=== PATIENT | female | born 1950 | race Two or more races ===

== ENCOUNTER 2024-06-19 06:04 | Day surgery (SDC) | payer OTHER ==
[~2024-06-19] VITALS: Ht 149.9 cm; Wt 65.8 kg
[~2024-06-19 06:04] MED LIST: ASCO500T11 PO; B-COCAP34 OR; CHOL200021 PO; LEVO-848 PO; LISI-707 PO; SPECCAP4 OR
[2024-06-19] MEDS ORDERED: DexAMETHasone SOD PHOS 4 MG/1ML SDV INJ ONE (06:48)
[2024-06-19] MEDS ORDERED: EPINEPHrine HCL 1 MG/1 ML AMP ONE (06:48)
[2024-06-19] MEDS ORDERED: fentaNYL CITRATE 100 MCG/2 ML VL ONE ×2 (06:48→08:27)
[2024-06-19] MEDS ORDERED: LIDOCAINE 1% (LOCAL ANESTH.) PF 5ml SDV ONE (06:50)
[2024-06-19] MEDS ORDERED: VANCOMYCIN HCL 1000 MG VL ONE (06:54)
[2024-06-19] MEDS ORDERED: PROPOFOL 10 MG/ML 20 ML IV ONE (06:55)
[2024-06-19] MEDS ORDERED: BUPIVACAINE HCL 50 ML ONE (06:58)
[2024-06-19] MEDS ORDERED: LIDOCAINE 1% HCL (LOCAL ANESTH.) INJ 20ML MDV ONE (06:58)
[2024-06-19] MEDS ORDERED: ONDANSETRON HCL 4 MG/2 ML VIAL ONE (07:25)
[2024-06-19] MEDS ORDERED: DexAMETHasone SOD PHOS 10MG/1ML VIAL INJ ONE (07:25)
[2024-06-19] MEDS: LIDOCAINE 1%HCL (LOCAL ANESTH) 10 ML MDV IJ ONE (07:26)
[2024-06-19] MEDS ORDERED: ePHEDrine SULFATE 50 MG/ML AMP ONE (07:41)
[2024-06-19] MEDS: HYDROmorphone HCL 2 MG/ML VL/or syr IV PRN (08:00)
[2024-06-19] MEDS ORDERED: ONDANSETRON HCL 4 MG/2 ML VIAL IV ONE (08:00)
[2024-06-19] MEDS: ACETAMINOPHEN IV 1000 MG/100ML (10MG/ML) IV PRN (08:06)
[2024-06-19] MEDS: HYDROmorphone HCL 2 MG/ML VL/or syr ONE (08:10)
--- NOTE | 2024-06-19 08:17 | DVH ---
INDICATION: ORIF RT WRIST TECHNIQUE: Fluoroscopic images of the right wrist were performed. Images are provided for intraoperat akash localization. COMPARISON: None FINDINGS: Fluoroscopic images of the right wrist are provided for localization. Please refer to the operative r eport. Total fluoroscopy time 17.1 seconds. Radiation dose 0.29 mGy. IMPRESSION: 1. Fluoroscopic images provided for intraoperative localization. Please refer to operative report.
[2024-06-19] MEDS: MEPERIDINE HCL (25 MG/ML) 1ML VIAL IV PRN (08:20)
--- NOTE | 2024-06-19 08:27 | DVHOP2 ---
Operative Report - 2 Report Details Date: 06/19/24 Preop Diagnosis: Right distal radius fracture Postop Diagnosis: As above Surgeon: Cristóbal Stark MD External Relations Manager: Lonny COLEMAN Anesthesiologist: Radha ANG Anesthesia: General, Regional Implant: ITS Distal radius plate - mix of locking/nonlocking screws Consent: The patient was informed of the risks and benefits of the procedure. These include but are not limited to complications of anesthesia, postoperative infection, incomplete relief of symptoms, recurrence of symptoms, damage to blood vessels, nerves and tendons, deep venous thrombosis, pulmonary embolism and possible need for repeat surgery in the future. Estimated Blood Loss: 5 cc Name of Procedure Performed 1. Open reduction and internal fixation of Right distal radius fracture - intraarticulare more than 3 parts 2. Intraoperative Fluoroscopy Procedure Details Procedure Details: Risks/benefits/options/alternatives were discussed at length with patient and hi s family. Nonoperative versus operative management was presented to her. Risks include but not exclusive to bleeding, infection, nerve injury, tendon or ligament damage, hardware failure, nonunion, malunion, need for further surgery, amputation, DVT, and . She understood these risks and wished to proceed with surgery. OPERATION: The patient was brought from the career development engineer unit and placed on the operating table in a supine position and administered general anesthetic. Tourniquet was placed around the Right upper extremity. Once adequate anesthesia had been obtained, the right upper extremity was prepped and draped in the usual sterile manner. A time out was performed. The upper extremity was then elevated and exsanguinated using an Esmarch dressing. The tourniquet was elevated to 250 mmHg. At this time an approximately 6 cm longitudinal incision was then made overlying the right flexor carpi radialis tendon from the flexion crease to the wrist proximally. This was carried down to the flexor carpi radialis, which was then retracted ulnarly. The floor of the flexor carpi radialis was then incised exposing the flexor pronator muscles. The flexor pollicis longus was retracted ulnarly and the pronator quadratus was longitudinally incised 1 cm from its o rigin. It was then elevated off of the fracture site exposing the fracture site, which was dorsally displaced. This was an intraarticular three-part fracture. Under image control, the volar pieces and dorsal pieces were then carefully manipulated and reduced. Then 2.06 two-inch K-wires were drilled radial into the volar ulnar fragment and then a second K-wire was then drilled from the dorsal radial to the dorsal ulnar piece. The fracture was then manipulated. The fracture ends were copiously irrigated with normal saline and curetted and then the fracture was reduced in the usual fashion by recreating the defect and distracting it. Further K-wires were then placed through the radial styloid into the proximal fragment. Patient had significant comminution. A volar distal radius plate was then picked and using two K-wires it was well seated. We checked with fluoro. We then used a combination of locking/nonlocking screws and pegs. There was excellent reduction of the fragments and the fracture; excellent reduction of the intraarticular component and the fracture. Incision was then copiously irrigated with normal saline. Homeostasis was maintained with electrocautery. The pronator quadratus was closed with 3-0 Vicryl and the above skin incisions were closed proximally with 3-0 nylon. A large bulky dressing was then applied with a volar short-arm splint maintaining the wrist in neutral position. The tourniquet was let down. The fingers were immediately pink. The patient was awakened and taken to the recovery room in good condition. There were no operative complications. The patient tolerated the procedure well. Condition Good Disposition Home CRISTÓBAL STARK MD Jun 19, 2024 08:27
[2024-06-19] MEDS: fentaNYL CITRATE 100 MCG/2 ML VL IV ONE (08:40)
--- NOTE | 2024-06-19 08:50 | DVH ---
C-ARM FLUOROSCOPY: PROCEDURE: ORIF FLUOROSCOPY TIME: 17.1 seconds
[2024-06-19 09:00] VITALS: BP 152/71; PULSE 73; RESP 14; O2SAT 98
== END 2024-06-19 09:05 | disposition home or self-care (01) ==
LOC: SUR 06:04
PROVIDERS: ATTEND Orthopaedic Surgery Adult Reconstructive Orthopaedic Surgery
DX: S52.571A Other intraarticular fracture of lower end of right radius, initial encounter for closed fracture (principal); I10 Essential (primary) hypertension; E03.9 Hypothyroidism, unspecified; G89.18 Other acute postprocedural pain; Z88.0 Allergy status to penicillin; Z98.890 Other specified postprocedural states; Z79.899 Other long term (current) drug therapy; Z79.890 Hormone replacement therapy; W19.XXXA Unspecified fall, initial encounter; Y93.89 Activity, other specified; Y92.89 Other specified places as the place of occurrence of the external cause; Y99.8 Other external cause status
CPT/HCPCS: 25609; 64415; 73100; C1713; J0171; J1100; J1171; J2003; J2175; J2405; J2704; J3010; J3370; J3490; 76000; J0131